=== PATIENT | male | born 1970 | race Caucasian/White ===

== ENCOUNTER 2016-08-17 10:48 | Observation (INO) ==
[2016-08-17] MEDS ORDERED: NS 1,000 ML IV ONE ×2 (12:15→15:43)
[2016-08-17 12:39] LABS: BASO% 0.1 % (0.0-0.8); EOS# 0.08 X1000 (0.0-0.7); EOS% 0.6 % (0.0-10.0); HEMATOCRIT 45.1 % (42.0-52.0); HEMOGLOBIN 15.8 g/dL (14.0-18.0); LYMPH# 3.48 X1000 (1.2-3.4); LYMPH% 25.7 % (20.5-51.1); MANUAL DIFF NEEDED? NO; MCH 29.5 PG (27-31); MCV 84.3 FL (81-99); MONO# 1.25 X1000 (0.11-0.59); MONO% 9.2 % (1.7-9.3); MPV 11.5 FL (7.4-10.4); NEUT% 64.4 % (42.2-75.2); PLT 159 X1000 (130-400); RBC 5.35 XMIL (4.7-6.1)
[2016-08-17 12:47] LABS: AGAP 16; ALBUMIN 4.2 g/dL (3.5-5.0); ALKALINE PHOSPHATASE 56 U/L (32-122); BUN 18 mg/dL (8-22); CALCIUM 8.8 mg/dL (8.8-10.2); CHLORIDE 95 mmol/L (98-107); COSMO 274; GOT 17 U/L (10-34); GPT 35 U/L (10-44); POTASSIUM 2.9 mmol/L (3.5-5.1); SODIUM 136 mmol/L (136-145); TCO2 25 mmol/L (25-35); TOTAL BILIRUBIN 2.17 mg/dL (0.20-1.00); TOTAL PROTEIN 6.6 g/dL (6.3-8.3)
--- NOTE | 2016-08-17 12:52 | Diag Imaging Result Doc PS360 ---
EXAM: HEAD W/O CONTRAST TECHNIQUE: Dose reduction protocol was used. INDICATION: ams COMPARISON: None. FINDINGS: There is no definite acute infarct given the limited sensitivity of CT versus MRI. There is no discrete intracranial mass, mass effect, or intracranial hemorrhage. The surrounding soft tissues and bony structures are essentially unremarkable. IMPRESSION: No evidence of acute intracranial pathology. Electronically signed by Damon Garcia 08/17/2016 12:50 PM
[2016-08-17 13:03] LABS: FREE T4 1.85 ng/dL (0.93-1.70)
[2016-08-17] MEDS ORDERED: KLOR-CON PO ONE (13:07)
--- NOTE | 2016-08-17 13:55 | Diag Imaging Result Doc PS360 ---
EXAM: CHEST-2 VIEWS INDICATION: ams TECHNIQUE: 2 views COMPARISON: None. FINDINGS: The lungs are grossly clear. There is no discrete pleural fluid collection or pneumothorax. The cardiomediastinal silhouette and central vasculature are grossly unremarkable. IMPRESSION: No evidence of acute pathology by plain radiograph. Electronically signed by Damon Garcia 08/17/2016 1:52 PM
--- NOTE | 2016-08-17 14:12 | EKG Report ---
Test Performed on : 08/17/2016 11:16:08 AM Test Reason : ams Blood Pressure : / mmHG Vent. Rate : 065 BPM Atrial Rate : 065 BPM P-R Int : 114 ms QRS Dur : 084 ms QT Int : 406 ms P-R-T Axes : 030 -02 012 degrees QTc Int : 422 ms Normal sinus rhythm. Normal ECG No previous ECGs available Unconfirmed Result
[2016-08-17 16:00] LABS: URINE CULTURE NEEDED? NO; URINE MICRO REVIEW NEEDED? NO; URINE SOURCE CLEAN CATCH
--- NOTE | 2016-08-17 16:05 | PROVIDER DOCUMENTATION ---
This chart was entered by Nikita Gilmore Scribe, acting as scribe for Sivakumar Reza MD. HPI-Neurological Disorder - General Source: patient, family Unable to obtain history due to:: altered - History of Present Illness-Neuro Severity: reports: moderate Onset/Duration: reports: abrupt, 6 days ago Timing: reports: still present Context: reports: seizure activity Character of Altered Mental Status: reports: disoriented, confused, agitated, trouble concentrating New weakness or altered sensation location:: reports: none Cognitive Baseline: alert, oriented x3 Gait Baseline: walks without assistance Associated Symptoms: reports: seizures, other (confu). denies: headache, decreased ability to walk or stand, dizziness, neck/back pain, insomnia, nausea , slurred speech, vomiting, weakness Recently seen or treated by another doctor?: Yes (sent her by pcp office) <Sivakumar Reza - Last Filed: 08/17/16 16:04> <Eric Ritter - Last Filed: 08/17/16 17:39> - General Chief Complaint: Altered Mental Status Stated Complaint: SEIZURE Time Seen by Provider: 08/17/16 11:26 Allergies/Adverse Reactions: Patient Allergies Allergy/AdvReac Type Severity Reaction Status Date / Time Penicillins Allergy ANAPHYLAXIS Verified 06/10/13 23:15 Home Medications: Home Medication List Medication Instructions Recorded Confirmed Last Taken Type Allopurinol 100 mg PO DAILY 06/10/13 08/17/16 Unknown History Clonazepam [Klonopin] 1 mg PO 3-4XDAY PRN PRN 06/10/13 08/17/16 Unknown History Hydrocodone/APAP 10 mg/325 mg 10 mg PO 4XDAY 06/10/13 08/17/16 Unknown History [[place]-10] Olmesartan/Hydrochlorothiazide 20 mg PO DAILY 06/10/13 08/17/16 Unknown History [Benicar Hct 40-12.5 mg Tablet] Acetaminophen with Codeine 1 each PO Q6H PRN PRN #30 tablet 06/11/13 08/17/16 Unknown Rx [Tylenol with Codeine #3 Tablet] Naproxen [Naprosyn] 250 mg PO BID #30 tablet 06/11/13 08/17/16 Unknown Rx - History of Present Illness-Neuro Nature of Presenting Problem: patient is a 46 y/o M that presents to the ER with AMS since seizure 6 days ago. patient has remote history of seizures but hasn't had one in years. Denies recent injury. Since having seizure, patient has been confused at times, having trouble remembering, and also acting different than his normal. He was sent here by PCP's office for evaluation. He has been saying things that he doesn't remember saying (Nikita Gilmore) patient is a 46 y/o M that presents to the ER with AMS since seizure 6 days ago. patient has remote history of seizures but hasn't had one in years. Denies recent injury. Since having seizure, patient has been confused at times, having trouble remembering, and also acting different than his normal. He was sent here by PCP's office for evaluation. He has been saying things that he doesn't remember saying (Sivakumar Reza) Review of Systems - Adult - REVIEW OF SYSTEMS - ADULT ROS:: ROS per family Constitutional: denies: chills, fever Eyes: reports: no symptoms reported Ears, Nose, Mouth & Throat: reports: no symptoms reported Cardiovascular: denies: chest pain, orthopnea, palpitations, syncope Respiratory: denies: chronic cough, cough, shortness of breath, wheezing Gastrointestinal: denies: abdominal pain, nausea, vomiting Genitourinary: reports: no symptoms reported Musculoskeletal: denies: back pain, neck pain Integumentary: reports: no symptoms reported Neurological: reports: seizure, other (ams, confusion) Psychiatric: reports: no symptoms reported Endocrine: reports: no symptoms reported Hematologic/Lymphatic: reports: no symptoms reported Allergic/Immunologic: reports: no symptoms reported All Other Systems: Reviewed and Negative <Sivakumar Reza - Last Filed: 08/17/16 16:04> - REVIEW OF SYSTEMS - ADULT Constitutional: reports: see HPI <Eric Ritter - Last Filed: 08/17/16 17:39> Past History - Adult - PAST MEDICAL HISTORY-ADULT Review of Records: reports: Old Records Reviewed, Nursing Assessment Review, Medications Reviewed Musculoskeletal: reports: chronic pain, other fractures, orthopedic injury, other (heel,foot fxs) Neurological: reports: Seizures/Epilepsy Other Conditions: reports: denies history - PRIOR SURGERIES/PROCEDURES Surgical/Procedure History: reports: reviewed, not pertinent - FAMILY HISTORY Family History: reviewed, not pertinent - SOCIAL HISTORY Smoking: non-smoker Alcohol Use Frequency: occasionally Living Situation: family <Sivakumar Reza - Last Filed: 08/17/16 16:04> - PAST MEDICAL HISTORY-ADULT Review of Records: reports: Old Records Reviewed, Social history reviewed & non- contributory. <Eric Ritter - Last Filed: 08/17/16 17:39> Physical Exam- Neurological - Physical Exam-Neuro Initial Vital Signs Reviewed: Yes General Appearance: mild distress, anxious, other (confused) Eye Exam: bilateral eye: normal inspection, PERRL HENMT: normocephalic/atraumatic, moist mucous membranes, normal ENT inspection Head Injury: no evidence of injury. 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 Exam: normal hearing, normal speech, PERRL Motor/Sensory: no motor deficit, no sensory deficit Neurologic: enterprise software developer II-XII nml as tested, no motor/sensory deficits Integumentary: normal color, warm/dry Psych/Mental Status: anxious, other (confused at times,) <Sivakumar Reza - Last Filed: 08/17/16 16:04> - Physical Exam-Neuro General Appearance: appears well <Eric Ritter - Last Filed: 08/17/16 17:39> Progress - PLAN OF CARE/RESULTS Result Diagrams: 08/17/16 11:45 08/17/16 11:45 - EKG 1 Time of EKG reading by physician:: 11:16 EKG Read and Signed by:: Sivakumar Reza EKG Interpretation (*Must complete 3 of following elements*): Normal Rate: 65 Rhythm: NSR [place]: normal QRS: normal [place] Interval: normal ST Wave: normal - CT/MRI 1 CT Study: Head Impression: Normal CT Results: NAD per radiologist <Sivakumar Reza - Last Filed: 08/17/16 16:04> - PLAN OF CARE/RESULTS Result Diagrams: 08/17/16 11:45 08/17/16 11:45 - CONSULTS/PCP/HOSPITALIST Notification #1 *Consult/PCP/Hospitalist*: Hospitalist Time Discussed: 17:30 Consult Disposition: Admit <Eric Ritter JoseMark - Last Filed: 08/17/16 17:39> - PLAN OF CARE/RESULTS Progress/Plan/Lab Results: Vital Signs - 8 hr 08/17/16 11:09 08/17/16 15:58 Temperature 99.1 F Pulse Rate 73 68 Respiratory Rate 18 18 Blood Pressure 145/88 134/78 O2 Sat by Pulse Oximetry 99 100 Laboratory Results - last 24 hr 08/17/16 08/17/16 08/17/16 11:45 11:45 11:45 WBC 13.55 H RBC 5.35 Hgb 15.8 Hct 45.1 MCV 84.3 MCH 29.5 MCHC 35.0 RDW Std Deviation 12.4 Plt Count 159 MPV 11.5 H Neut % (Auto) 64.4 Lymph % (Auto) 25.7 [place] % (Auto) 9.2 Eos % (Auto) 0.6 Baso % (Auto) 0.1 Neut # (Auto) 8.72 H Lymph # (Auto) 3.48 H [place] # (Auto) 1.25 H Eos # (Auto) 0.08 Baso # (Auto) 0.02 Sodium 136 Potassium 2.9 L Chloride 95 L Carbon Dioxide 25 Anion Gap 16 BUN 18 Creatinine 0.9 Estimated GFR/1.73 m2 > 60 BUN/Creatinine Ratio 20 Glucose 107 H Calculated Osmolality 274 Calcium 8.8 Total Bilirubin 2.17 H AST 17 ALT 35 Alkaline Phosphatase 56 Ammonia Creatine Kinase Total Protein 6.6 Albumin 4.2 Globulin 2.4 Albumin/Globulin Ratio 1.8 Vitamin B12 TSH Free T4 Urine Source Urine Color Urine Turbidity Urine pH Ur Specific [place] Urine Protein Ur Glucose (Stick) Ur Ketones (Stick) Urine Blood Urine Nitrite Urine Bilirubin Urobilinogen Dipstick Urine Leukocytes Urine WBC (Auto) Urine RBC (Auto) U Epithel Cells (Auto) Urine Bacteria (Auto) Urine Opiates Screen Ur Oxycodone Screen Ur Methadone, Qual Ur Barbiturates Screen Ur Phencyclidine Scrn Ur Amphetamines Screen U Benzodiazepines Scrn Urine Cocaine Screen U Cannabinoids Screen Plasma/Serum Ethyl Alc 08/17/16 08/17/16 08/17/16 11:45 11:45 15:39 WBC RBC Hgb Hct MCV MCH MCHC RDW Std Deviation Plt Count MPV Neut % (Auto) Lymph % (Auto) [place] % (Auto) Eos % (Auto) Baso % (Auto) Neut # (Auto) Lymph # (Auto) [place] # (Auto) Eos # (Auto) Baso # (Auto) Sodium Potassium Chloride Carbon Dioxide Anion Gap BUN Creatinine Estimated GFR/1.73 m2 BUN/Creatinine Ratio Glucose Calculated Osmolality Calcium Total Bilirubin AST ALT Alkaline Phosphatase Ammonia 50 Creatine Kinase 155 Total Protein Albumin Globulin Albumin/Globulin Ratio Vitamin B12 531 TSH 2.50 Free T4 1.85 H Urine Source Urine Color Urine Turbidity Urine pH Ur Specific [place] Urine Protein Ur Glucose (Stick) Ur Ketones (Stick) Urine Blood Urine Nitrite Urine Bilirubin Urobilinogen Dipstick Urine Leukocytes Urine WBC (Auto) Urine RBC (Auto) U Epithel Cells (Auto) Urine Bacteria (Auto) Urine Opiates Screen Ur Oxycodone Screen Ur Methadone, Qual Ur Barbiturates Screen Ur Phencyclidine Scrn Ur Amphetamines Screen U Benzodiazepines Scrn Urine Cocaine Screen U Cannabinoids Screen Plasma/Serum Ethyl Alc 08/17/16 08/17/16 15:40 15:40 WBC RBC Hgb Hct MCV MCH MCHC RDW Std Deviation Plt Count MPV Neut % (Auto) Lymph % (Auto) [place] % (Auto) Eos % (Auto) Baso % (Auto) Neut # (Auto) Lymph # (Auto) [place] # (Auto) Eos # (Auto) Baso # (Auto) Sodium Potassium Chloride Carbon Dioxide Anion Gap BUN Creatinine Estimated GFR/1.73 m2 BUN/Creatinine Ratio Glucose Calculated Osmolality Calcium Total Bilirubin AST ALT Alkaline Phosphatase Ammonia Creatine Kinase Total Protein Albumin Globulin Albumin/Globulin Ratio Vitamin B12 TSH Free T4 Urine Source CLEAN CATCH Urine Color YELLOW Urine Turbidity CLEAR Urine pH 6.0 Ur Specific [place] 1.026 Urine Protein TRACE A Ur Glucose (Stick) NEGATIVE Ur Ketones (Stick) NEGATIVE Urine Blood NEGATIVE Urine Nitrite NEGATIVE Urine Bilirubin NEGATIVE Urobilinogen Dipstick NORMAL Urine Leukocytes NEGATIVE Urine WBC (Auto) <10 Urine RBC (Auto) <10 U Epithel Cells (Auto) <10 Urine Bacteria (Auto) NEGATIVE Urine Opiates Screen NONE DETECTED Ur Oxycodone Screen NONE DETECTED Ur Methadone, Qual NONE DETECTED Ur Barbiturates Screen NONE DETECTED Ur Phencyclidine Scrn NONE DETECTED Ur Amphetamines Screen NONE DETECTED U Benzodiazepines Scrn PRESUMPTIVE POSITIVE A Urine Cocaine Screen NONE DETECTED U Cannabinoids Screen PRESUMPTIVE POSITIVE A Plasma/Serum Ethyl Alc Orders Category Date Time Status IV Insertion ORDERED Care 08/17/16 12:14 Completed Straight Catheterization ORDERED Care 08/17/16 14:00 Active CHEST-2 VIEWS [RAD] Stat Exams 08/17/16 13:07 Completed HEAD W/O CONTRAST [CT] Stat Exams 08/17/16 12:04 Completed ALCOHOL BLOOD Stat Lab 08/17/16 11:45 Completed AMMONIA [CHEM] Stat Lab 08/17/16 15:39 Completed CBC WITH ELECTRONIC DIFF [HEME] Stat Lab 08/17/16 11:45 Completed CK TOTAL [CHEM] Stat Lab 08/17/16 11:45 Completed COMPREHENSIVE METABOLIC PANEL [CHEM] Stat Lab 08/17/16 11:45 Completed FREE T4 Stat Lab 08/17/16 11:45 Completed TSH Stat Lab 08/17/16 11:45 Completed URINALYSIS W/POSS RFLX CULT-1 [URINALYSIS] Stat Lab 08/17/16 15:40 Completed URINE DRUG SCREEN Stat Lab 08/17/16 15:40 Completed VITAMIN B12 Stat Lab 08/17/16 11:45 Completed 0.9% Sodium Chloride Inj [Ns] 1,000 ml Med 08/17/16 12:15 Discontinued IV 999 mls/hr 0.9% Sodium Chloride Inj [Ns] 1,000 ml Med 08/17/16 15:43 Discontinued IV 999 mls/hr Potassium Chloride E.r. [Klor-Con] Med 08/17/16 13:07 Discontinued 60 meq PO NOW ONE EKG [EKG] Stat Ther 08/17/16 13:07 Draft Departure <Sivakumar Reza - Last Filed: 08/17/16 16:04> - Departure Date of Disposition Decision: 08/17/16 Time of Disposition Decision: 17:37 Certified Medical Emergency: Emergent - Critical Care Note This patient required my direct & personal management of CC.: No <Eric Ritter - Last Filed: 08/17/16 17:39> - Departure DIAGNOSIS: Altered mental status Qualifiers: Altered mental status type: unspecified Qualified Code(s): R41.82 - Altered mental status, unspecified Disposition: ADMITTED INPATIENT 09 Condition: Stable Referrals and Follow-Ups: Dick Cedeño MD [Primary Care Provider] - Attestation - Physician/ ELLIE Attestation Patient care was provided by Advanced Practice Provider:: Yes Advanced Practice Provider:: Eric Ritter Advanced Practice Provider documentation review:: The Mid-level provider documentation, treatment plan and medical decision making was reviewed by the physician who agrees with all treatment and medical decision making by the MLP. The physician spent face to face time with patient:: Yes (Originally Dr. Reza's patient took over at shift change.) Advanced Practice Provider documentation review:: The physician spent face to face time with this patient and agrees with all MLP documentation, treatment, and medical decision making by the MLP. See provider notes for further information. <Eric Ritter - Last Filed: 08/17/16 17:39> This chart was documented by the indicated scribe, (Nikita Gilmore, Nateibe) and accurately reflects the services I performed and decisions made by me, Sivakumar Reza MD, as attested by the provider's signature.
[2016-08-17 16:09] LABS: BILIRUBIN URINE NEGATIVE (NEGATIVE); BLOOD URINE NEGATIVE (NEGATIVE); COLOR YELLOW; GLUCOSE URINE NEGATIVE (NEGATIVE); LEUKOCYTES URINE NEGATIVE (NEGATIVE); NITRITE URINE NEGATIVE (NEGATIVE); PROTEIN URINE TRACE mg/dL (NEGATIVE); SP GRAVITY URINE 1.026; TURBIDITY URINE CLEAR (CLEAR); UROBILINOGEN URINE NORMAL (NORMAL)
[2016-08-17 16:11] LABS: UR EPITHELIAL CELLS <10 /HPF (<10); URINE BACTERIA NEGATIVE /HPF; URINE RBC <10 /HPF (<10); URINE WBC <10 /HPF (<10)
[2016-08-17 16:37] LABS: UR AMPHETAMINES QUAL NONE DETECTED (NONE DETECT); UR BARBITUATES QUAL NONE DETECTED (NONE DETECT); UR BENZODIAZEPIN QUAL PRESUMPTIVE POSITIVE (NONE DETECT); UR CANNABINOIDS QUAL PRESUMPTIVE POSITIVE (NONE DETECT); UR COCAINE QUAL NONE DETECTED (NONE DETECT); UR METHADONE QUAL NONE DETECTED (NONE DETECT); UR OPIATES QUAL NONE DETECTED (NONE DETECT); UR OXYCODONE QUAL NONE DETECTED (NONE DETECT); UR PCP QUAL NONE DETECTED (NONE DETECT)
[2016-08-17] MEDS ORDERED: ATIVAN IV ONE (17:39)
[2016-08-17] MEDS ORDERED: ATIVAN IV PRN (18:17)
--- NOTE | 2016-08-17 18:47 | HISTORY AND PHYSICAL ---
CHIEF COMPLAINT: Altered mental status. HISTORY OF PRESENT ILLNESS: This is a 46-year-old male with a past medical history of seizure disorder, hypertension, gout, chronic bilateral ankle pain, drug abuse/marijuana, was brought by his to the emergency department with a chief complaint of altered mental status. Apparently everything started 6 days ago, last 08/11/2016 when this patient presented with 2 episodes of seizures, 1 of them witnessed by his . After these 2 episodes he was sleepy and actually he slept almost all off and the next day as well. As per the , the last episode of seizure was back on April or June 2016. This patient is not on any kind of seizure medication. We did a CT scan of the head that did not show any abnormality and also an x-ray without any problems. Laboratory work showed an elevated WBC of 13.5 and potassium 2.9. I will admit the patient to get an MRI of the brain. I will order an EEG and I will consult Neurology Department to evaluate this patient. REVIEW OF SYSTEMS: All the 14 points of review of systems were reviewed. All negative except as per HPI. PAST MEDICAL HISTORY: Seizure disorder with no treatment, hypertension, gout, chronic pain at the level of the ankles secondary to surgery, and drug abuse/marijuana daily. FAMILY HISTORY: Daughter 20 years old with Moyamoya disease, and Chiari malformation. Brother with diabetes and father with diabetes and coronary artery disease. SOCIAL HISTORY: Marijuana. He is not quite sure how long he has been doing that. He denies alcohol and cigarette smoking. He is a construction project assistant. PAST SURGICAL HISTORY: Umbilical hernia repair and bilateral ankle fracture repair. ALLERGIES: Penicillin. HOME MEDICATIONS: He is on Benicar 40/12.5 mg half a tablet daily, naproxen 250 mg p.o. b.i.d., [place] 10 mg p.o. 4 times a day, clonazepam 1 mg p.o. 3-4 times a day p.r.n., allopurinol 100 mg p.o. daily, and acetaminophen with codeine #3 one tablet p.o. q.6 hours p.r.n. OBJECTIVE: Vital signs: Temperature 99.1 degrees, pulse 68, respiratory rate 18, blood pressure 134/78, oxygen saturation 100% on room air. HEENT: Head normocephalic. No trauma. PERRLA. Neck: Supple. No JVD. No masses. Central trachea. Chest: Clear to auscultation. No wheezing. No rales. Abdomen: Soft, nontender, nondistended. No hepatosplenomegaly. Extremities: No edema. No clubbing. No cyanosis. Neurological: The patient is alert. He is oriented x3 but his answers are slow. He does not remember why this he is here in the hospital. He does not remember that he went today in the morning to his primary care doctor. It looks like he has a memory impairment. He is constantly asking why he is in the hospital. LABORATORY: WBC 13.5, hemoglobin 15.8, hematocrit 45.1, platelets 159,000. Sodium 136, potassium 2.9, chloride 95, bicarbonate 25, BUN 18, creatinine 0.9, glucose 107, calcium 8.8. TSH 2.5. ASSESSMENT AND PLAN: 1. Altered mental status in a patient with seizure disorder. Apparently this patient has been 6 days with confusion. As per the , when he has seizures his memory and his functions recover in a short period of time but this time it is taking too long, to the point that he is still having confusion. I will order an MRI of the brain with and without contrast and I will order also an EEG for this patient to rule out any subclinical seizures. Also, I will consult Neurology Department for evaluation. 2. Seizure disorder. As above. 3. Hypertension. I will keep this patient on his own medication. Stable. 4. Allopurinol, continue with home medication. 5. Chronic bilateral ankle pain. I will continue with his home medication as well. cc: Trell Sykes MD
[2016-08-17] MEDS: NORCO-10 PO SCH (22:19)
[2016-08-18 05:40] LABS: MANUAL DIFF NEEDED? NO
[2016-08-18 05:50] LABS: BASO% 0.2 % (0.0-0.8); EOS# 0.19 X1000 (0.0-0.7); EOS% 1.7 % (0.0-10.0); HEMATOCRIT 43.3 % (42.0-52.0); HEMOGLOBIN 15.2 g/dL (14.0-18.0); IMM GRAN# 0.06 X1000 (0.0-0.04); IMM GRAN% 0.5 % (0.0-0.5); LYMPH% 32.3 % (20.5-51.1); MCH 29.3 PG (27-31); MCHC 35.1 g/dL (33-37); MCV 83.4 FL (81-99); MONO# 1.08 X1000 (0.11-0.59); MONO% 9.4 % (1.7-9.3); MPV 11.4 FL (7.4-10.4); NEUT% 55.9 % (42.2-75.2); PLT 241 X1000 (130-400); RBC 5.19 XMIL (4.7-6.1)
[2016-08-18 06:21] LABS: AGAP 11; BUN 18 mg/dL (8-22); CALCIUM 8.8 mg/dL (8.8-10.2); CHLORIDE 102 mmol/L (98-107); COSMO 281; POTASSIUM 3.6 mmol/L (3.5-5.1); SODIUM 140 mmol/L (136-145); TCO2 27 mmol/L (25-35)
--- NOTE | 2016-08-18 09:13 | Diag Imaging Result Doc PS360 ---
EXAM: MRI BRAIN W W/O CONTRAST HISTORY: Confusion/Seizures TECHNIQUE: MRI of the brain with and without gadolinium: T1 axial and sagittal, T2 and flair axial, DWI axial, gradient echo coronal and post gadolinium T1 FSPGR 3-D with coronal reconstructions. COMMENT: There is no evidence of restricted diffusion, bleed, or abnormal extra-axial fluid collection. There is no evidence of mass effect or abnormal gadolinium enhancement. There is a punctate area of increased T2-weighted signal intensity in the white matter adjacent to the left lateral ventricle atrium and similar foci are present in both frontal subcortical white matter regions. There are few scattered in the centrum semiovale region bilaterally. IMPRESSION: Minimal microvascular white matter changes. No evidence of acute disease. Electronically signed by Adi Hammer 08/18/2016 9:11 AM
[2016-08-18] MEDS: LOVENOX SUBQ SCH (09:49)
[2016-08-18] MEDS: ZYLOPRIM PO SCH (09:49)
[2016-08-18] MEDS: NORCO-10 PO SCH ×4 (10:00→22:58)
--- NOTE | 2016-08-18 12:38 | CONSULTATION ---
DATE OF CONSULTATION: 08/18/2016 SUBJECTIVE: Mr. Brice is 46 years old and there is history of episodes raising question of seizure. History from the patient is that he does not remember what happened, does remember anything for the last week or may be the last month, does not recall coming to the hospital. History from attentive family at the bedside, is that they have seen him have spells about 10 or 15 times in the last 10 years. Episodes typically begin with sudden rigidity, generalized shaking, unresponsiveness, teeth clenched, sometimes falling with minor bruising , but no serious injury. Episodes have not been associated with urinary incontinence, bowel incontinence, tongue biting, or lip biting. There has never been a definite focal neurologic feature. After the spell, he is usually sore all over, tired, and sleepy. He recovers in half an hour or so. There is no history of serious head injury, diagnosed stroke, or other neurologic event. He has been taking benzodiazepines chronically. He reports evaluation for spells about 10 years ago when first episode occurred and that was attributed to alprazolam affect. He has not sought neurologic evaluation since then. He has never been treated for seizures. He has not had workup for seizure since 10 years ago. He takes clonazepam now and he presented with urine drug screen positive for benzodiazepines and for cannabis. He cannot tell me how he takes the clonazepam. He says he does not take it the same each day. He takes one most days, 2 or 3 some days. No family member can confirm his clonazepam use. Workup here includes noncontrast CT of the head, reported unremarkable. Brain MRI shows minimal microvascular white matter change and nothing focal or acute. LABORATORY DATA: Showed WBC count 13,000 initially, then 11,000. Chemistry was unremarkable. On exam, Mr. Brice is awake, alert, mostly attentive. Speech is not dysarthric. Language function is intact. Remote memory is fair. He simply said "I do not know" when I asked him questions about recent events and orientation. Head and neck are unremarkable. Visual mccormick are full tested by confrontational finger counting. Extraocular movements are full. Pupils react to light. Facial motility is symmetric. Gag is intact. Tongue is midline. Hearing is fair. Shoulder shrug is equal. Strength is normal in the arms and legs. Gait is normal. He did well on [id number] testing bilaterally. IMPRESSION: 1. History of episodes over the last 10 years, which sounds like generalized seizures. Explanation for seizure is not certain and could still be benzodiazepine withdrawal. Urine drug screen positive for benzodiazepines does not exclude a relative withdrawal syndrome. However, report that he has had 10 or 15 episodes over 10 years makes me suspect something other than simple benzodiazepine effect. 2. Report that he has not been himself for the last week since the last spell. There is report that he has told family he does not remember things in the last week. His responses to cognitive questioning today are not valid. I do not see evidence of increased intracranial pressure. Negative MRI is reassuring. We need to get EEG to make sure he is not having subclinical seizure. Further plans will depend on that report and will likely include recommendation for medicine to control seizures. 3. Chronic benzodiazepine use. I encouraged him to make sure he takes that medicine correctly and to consider tapering off that medicine slowly if he decides to discontinue it. 4. reports he has family history of Moyamoya disease with strokes and of Chiari malformation. I told her that MRI this admission does not show evidence of either of those conditions and that, often, certain types of Chiari malformation are an incidental finding and are not responsible for any clinical problem. Thanks for asking me to see Mr. Brice. cc: MD LARA Gee III
[2016-08-18] MEDS: BENICAR PO SCH (14:34)
[2016-08-19] MEDS: BENICAR PO SCH (08:19)
[2016-08-19] MEDS: LOVENOX SUBQ SCH (08:20)
[2016-08-19] MEDS: ZYLOPRIM PO SCH (08:20)
[2016-08-19] MEDS: NORCO-10 PO SCH ×3 (08:36→18:40)
[2016-08-19 14:44] VITALS: BP 125/80
--- NOTE | 2016-08-19 15:14 | EEG REPORT ---
DATE: 08/17/2016 EEG #[id number]: COMMENT: This is a digitally recorded EEG on a 46-year-old patient with reported history of seizures, recent possible seizure episode, recent difficulty with memory, atypical subjective amnesia. FINDINGS: During waking, medium amplitude 10 Hz posterior rhythm is present symmetrically, well modulated, and reacts normally to eye opening. Background contains polymorphic and rhythmic theta frequencies over the frontal and central regions symmetrically. [place] occurred with appearance of more generalized slowing and attenuation of the posterior rhythm. Stage 2 sleep was recorded briefly with symmetric features. Photic stimulation produced some symmetric entrainment. No definite epileptiform discharge was identified. INTERPRETATION: Normal EEG. CORRELATION: The absence of epileptiform discharges on a single EEG does not exclude the clinical diagnosis of seizures. There is nothing on this record to suggest ongoing subclinical seizure as the reason for his reported mental state. cc: MD Trell Gee III, MD [facility]ITAL[facility]essie
[2016-08-19] MEDS ORDERED: KEPPRA PO SCH (21:00)
--- NOTE | 2016-08-20 15:34 | DISCHARGE SUMMARY ---
ADMISSION DATE: 08/17/2016 DISCHARGE DATE: 08/19/2016 DISCHARGE DIAGNOSES: 1. Altered mental status in a patient with a seizure disorder. 2. Short term memory problems. 3. Seizure disorder. 4. Hypertension. 5. Gout. 6. Chronic bilateral ankle pain. CONSULTS: Neurology department and Psychiatry department. HOSPITAL COURSE: A 46-year-old male with a past medical history of seizure disorder, hypertension, gout, chronic bilateral ankle pain, drug abuse/marijuana, was brought by his into the emergency department with a chief complaint of altered mental status. Apparently, everything started 6 days prior to admission on 08/11/2016 when this patient presented with 2 episodes of seizures. One of then witnessed by his . After these 2 episodes, he was sleepy and actually he slept almost all the first day and the next day as well. As per the , the last episode of seizure was back on April or June 2016. This patient is not on any kind of seizure medication. We did a CT scan of the head that did not show any abnormality. Also, we did an x- ray that did not show any acute problems. MRI of the head and EEG are normal. Neurology department evaluated this patient and they state that it sounds like generalized seizures and explanation for seizure is not certain, but it could be still secondary to benzodiazepine withdrawal. Urine screen positive for benzodiazepine and these do not exclude a relative withdrawal syndrome. However, report that he has had 10 or 15 episodes over the last 10 years, so probably there is something else other than simple benzodiazepine effect. Since the MRI and EEG is normal. I consulted psychiatry for evaluation to rule out any side condition. A screener talked to the patient and then presented the case to psychiatry and they state that this is more medical than a psych issue and medical has been involved. All these were discussed with the patient and also with his . I will discharge this patient today, but I will start this patient on seizure medication Keppra 500 mg p.o. b.i.d. I told him that he needs to see a neurologist next week and probably the dose of Keppra has to be increased to 750 mg twice a day or even 1 g twice a day. They agree with the treatment and they seem to understand. I also told him that probably his benzodiazepine and pain medication has to be removed from his medications slowly to avoid withdrawal, and these have to be done by his primary care physician or a pain doctor. At the moment of discharge, this patient was in a stable medical condition. No big changes in symptomatology. PHYSICAL EXAMINATION: Vital signs: Temperature 98.4, pulse 76, respiratory rate 18, blood pressure 125/80, oxygen saturation 100% on room air. HEENT: Head normocephalic. No trauma. PERRLA. Neck: Supple. No JVD. No masses. Central trachea. Chest: Clear to auscultation. No wheezing. No rales. Abdomen: Soft, nontender, nondistended. No hepatosplenomegaly. Extremities: No edema. No clubbing. No cyanosis. Neurological: The patient is alert. He is following commands. He is answering all my questions, but he does not remember acute events like what happened yesterday and how long he has been here or even why he is here. LABORATORY: WBC 11.4, hemoglobin 15.2, hematocrit 43.3, platelet 241. Sodium 140, potassium 3.6, chloride 102, bicarbonate 27, BUN 18, creatinine 0.8, glucose 100, calcium 8.8. DISCHARGE MEDICATIONS: He will continue with his home medications and I will add Keppra 500 mg p.o. twice a day. He is on allopurinol 100 mg p.o. daily, Moodus 10 q.6 hours p.r.n., Benicar 40/12.5 mg p.o. daily. Naproxen 250 mg p.o. b.i.d., Tylenol with codeine No. 3, one tablet p.o. q.6 hours p.r.n. I told his that they need to avoid taking Klonopin, but if he is going to take the medication, it has to be under medical supervision, as well as the pain medication. FOLLOWUP: Follow up with Urology next week and follow up with his primary doctor next week as well. TIME SPENT: Time discharging this patient 45 minutes. cc: Trell Sykes MD
== END 2016-08-19 19:30 | disposition home or self-care (01) ==
LOC: ED 10:48 → 4N 19:48 → INTOOBSV 19:48
PROVIDERS: ATTEND Internal Medicine